=== PATIENT | male | born 1970 | race Caucasian/White ===

== ENCOUNTER 2017-01-24 11:48 | Emergency (ER) | payer SELFPAY ==
[~2017-01-24] VITALS: Ht 182.9 cm; Wt 90.7 kg
[2017-01-24 11:54] VITALS: BP 126/75
--- NOTE | 2017-01-24 11:54 | NUR ---
DIARRHEA, ABDOMINAL PAIN X 12 DAYS. AWAITING MD ORDER
--- NOTE | 2017-01-24 12:21 | NUR ---
LIVIA GA AT BEDSIDE FOR EVAL
== END 2017-01-24 13:03 | disposition home or self-care (01) ==
LOC: ER 11:52
DX: R10.84 Generalized abdominal pain (principal); R19.7 Diarrhea, unspecified; I10 Essential (primary) hypertension
CPT/HCPCS: A4606; Z7610